=== PATIENT | male | born 1990 | race African-American/Black ===

== ENCOUNTER 2017-05-21 08:45 | Emergency (ER) | payer SELFPAY ==
[~2017-05-21] VITALS: Ht 175.3 cm; Wt 86.2 kg
[2017-05-21 08:56] VITALS: BP 125/78
[2017-05-21] MEDS ORDERED: ONDA8TAB12 PO (09:00)
[2017-05-21] MEDS ORDERED: ONDANSETRON ODT 4 MG TAB.RAPDIS PO ONE (09:00)
[2017-05-21] MEDS ORDERED: DICY10CA53 PO (09:00)
--- NOTE | 2017-05-21 09:00 | PHYS DOC ---
Past History Past Medical History: No Pertinent History Past Surgical History: No Surgical History Smoking: Non-smoker Drug Use: None Adult General Chief Complaint Chief Complaint: nausea and vomiting [facility] Patient is a pleasant otherwise healthy 26 YO -[place] male with a one- day history of nonbilious nonbloody vomiting. Last week patient was exposed to his daughters had similar symptoms at home. Yesterday had one episode of nonbilious emesis nonbloody emesis. He denies any diarrhea. He's had one episode of nonbilious nonbloody vomiting today with minimal abdominal pain. He says he has a slight abdominal pain before vomiting is gone completely. It is episodic lasting only a few moments with no radiation to the back or lower abdomen. Denies any UTI symptoms, diarrhea or other issues. He further denies any recent antibiotics, travel outside the country or fevers. Patient is still eating and drinking well without issue and he still producing adequate urine. Review of Systems Review of Systems Constitutional: Denies fever or chills [] Eyes: Denies change in visual acuity, redness, or eye pain [] HENT: Denies nasal congestion or sore throat [] Respiratory: Denies cough or shortness of breath [] Cardiovascular: No additional information not addressed in HPI [] GI: He has had some crampy abdominal pain with nausea vomiting without bloody stools or diarrhea : Denies dysuria or hematuria [] Musculoskeletal: Denies back pain or joint pain [] Integument: Denies rash or skin lesions [] Neurologic: Denies headache, focal weakness or sensory changes [] Endocrine: Denies polyuria or polydipsia [] Physical Exam Physical Exam Vital signs recorded on the chart of the nursing staff within normal limits not tachycardic not hypoxic not tachypnea not febrile Constitutional: Well developed, well nourished, no acute distress, non-toxic appearance. [] HENT: Normocephalic, atraumatic, bilateral external ears normal, oropharynx moist, no oral exudates, nose normal. [] Eyes: PERRLA, EOMI, conjunctiva normal, no discharge. [] Neck: Normal range of motion, no tenderness, supple, no stridor. [] Cardiovascular:Heart rate regular rhythm, no murmur [] Lungs & Thorax: Bilateral breath sounds clear to auscultation [] Abdomen: Patient does have hyperactive bowel sounds soft nontender abdomen no masses guarding rebound or organomegaly no pulsatile masses. Clearly no Ha' s or McBurney's point tenderness to palpation on physical exam Skin: Warm, dry, no erythema, no rash. [] Neurologic: Alert and oriented X 3, normal motor function, normal gait[] Psychologic: Affect normal, judgement normal, mood normal. [] EKG EKG [] Radiology/Procedures Radiology/Procedures [] Course & Med Decision Making Course & Med Decision Making Pertinent Labs and Imaging studies reviewed. (See chart for details) [] Dragon Disclaimer Dragon Disclaimer This chart was dictated in whole or in part using Voice Recognition software in a busy, high-work load, and often noisy Emergency Department environment. It may contain unintended and wholly unrecognized errors or omissions. Departure Departure: Impression: Primary Impression: Nausea and vomiting Disposition: HOME, SELF-CARE Condition: IMPROVED Referrals: PCPDARRIN (PCP) Patient Instructions: Nausea and Vomiting Additional Instructions: My discharge plan Follow up: In addition patient is asked to followup with their primary doctor, within a week for followup examination and to address patient's ongoing medical conditions. Because patient does not have a regular medical doctor, a local physician Resource Sheet will be provided to establish care primary care. Patient is advised that in the Emergency Department primary complaints are addressed and only in light of known signs and symptoms. Patient should return immediately to the emergency department if new signs and symptoms develop or patient's condition worsens in any way. At time of discharge patient was in stable condition and had verbalized understanding of the discharge instructions. Scripts Ondansetron (ZOFRAN ODT) 8 Mg Tab.rapdis 8 MG PO BID for 5 Days Prov: PELON ZULUAGA MD 05/21/17 Dicyclomine Hcl (BENTYL) 10 Mg Capsule 1 CAP PO TID, #15 CAP.EC Prov: PELON ZULUAGA MD 05/21/17 PELON ZULUAGA MD May 21, 2017 09:00
== END 2017-05-21 09:08 | disposition home or self-care (01) ==
LOC: ER 08:45
DX: R11.2 Nausea with vomiting, unspecified (principal); R10.9 Unspecified abdominal pain
CPT/HCPCS: 99283; Q0162

== ENCOUNTER 2017-05-23 08:33 | Emergency (ER) | payer SELFPAY ==
[~2017-05-23] VITALS: Ht 175.3 cm; Wt 86.2 kg
[~2017-05-23 08:33] MED LIST: DICY10CA53 PO; ONDA8TAB12 PO
[2017-05-23] MEDS ORDERED: IV NORMAL SALINE 1,000ML 1,000 ML IV SCH (09:04)
[2017-05-23] MEDS ORDERED: PROMETHAZINE 25 MG in IV NORMAL SALINE 50ML 50 ML IV PRN (09:15)
[2017-05-23] MEDS ORDERED: IV NORMAL SALINE 50ML 50 ML ONE (09:20)
[2017-05-23] MEDS ORDERED: PROMETHAZINE 25 MG/ML VIAL IV ONE (09:21)
[2017-05-23 09:26] LABS: BASO % 1 % (0-3); EOS # 0.1 x10^3/uL (0.0-0.7); EOS % 1 % (0-3); HEMATOCRIT 50.1 % (39.0-53.0); HEMOGLOBIN 16.7 g/dL (13.0-17.5); LYMPH # 1.6 x10^3/uL (1.0-4.8); LYMPH % 18 % (24-48); MEAN CORPUSCULAR HEMOGLOBIN 30 pg (25-35); MEAN CORPUSCULAR HGB CONC 33 g/dL (31-37); MEAN CORPUSCULAR VOLUME 90 fL (79-100); MONO # 0.7 x10^3/uL (0.0-1.1); MONO % 7 % (0-9); NEUT # 6.8 x10^3uL (1.8-7.7); NEUT % 74 % (31-73); PLATELET COUNT 202 x10^3/uL (140-400); RED BLOOD COUNT 5.59 x10^6/uL (4.30-5.70); RED CELL DISTRIBUTION WIDTH 13.5 % (11.5-14.5); WHITE BLOOD COUNT 9.2 x10^3/uL (4.0-11.0)
[2017-05-23 09:37] LABS: ALBUMIN 4.3 g/dL (3.4-5.0); ALBUMIN/GLOBULIN RATIO 1.1 (1.0-1.7); CALCIUM 8.9 mg/dL (8.5-10.1); CREATININE 1.2 mg/dL (0.7-1.3); GFR 88.6; POTASSIUM 4.3 mmol/L (3.5-5.1); TOTAL BILIRUBIN 0.4 mg/dL (0.2-1.0); TOTAL PROTEIN 8.3 g/dL (6.4-8.2)
[2017-05-23] MEDS ORDERED: ONDANSETRON PF 4 MG/2 ML VIAL. IV ONE (09:45)
[2017-05-23] MEDS ORDERED: FAMOTIDINE 20 MG/2 ML VIAL IVP ONE (09:45)
--- NOTE | 2017-05-23 09:51 | PHYS DOC ---
General Chief Complaint: NAUSEA/VOMITING/DIARRHEA Stated Complaint: N/V/D Time Seen by MD: 08:34 Source: patient, old records Exam Limitations: no limitations Problems: History of Present Illness Initial Comments Patient is a 26-year-old male who returns to the ED with abdominal discomfort nausea vomiting and diarrhea. Patient states that for the past 4 days he's had generalized abdominal discomfort and cramping, nausea and vomiting with near by mouth intolerance, and multiple loose watery stools with foul-smelling gas. He states that his daughters have had similar symptoms however appear to be improving. He says that initially his discomfort was primarily upper abdomen and it seems to move to his lower abdomen over the past several days. No recent fever or chills he has been having some muscle cramping. He's been drinking "as much Powerade as I can" but states that he vomits the Zofran and it does not help. He says anytime he eats anything solid it comes right back up and that he has been missing work. He recently moved here from [place] and does not have a primary care doctor , his employer advised him that he needed further medical documentation for the repeated days missing work. The last 2 days she's had a global mild headache when standing with dizziness and lightheadedness which resolves when he sits or lies down. His abdominal discomfort is described as cramping moderate to severe at times typically relieved with emesis or bowel movement. He states that his abdominal muscles a very sore from vomiting he denies any blood in his emesis or bowel movements. Other than recently moving from [place] he denies any other travel or known bad food exposure and states that he is normally healthy with no immunosuppression is intubated sensations are up-to-date. Again he has been exposed to his children who have similar symptoms. Patient was seen here 2 days ago with similar symptoms, discharged home with Zofran and dicyclomine. Timing/Duration: constant (4-5 days) Severity: moderate Modifying Factors: worse with eating, worse with movement, improves with rest Associated Symptoms: headaches, malaise, nausea/vomiting Allergies: Coded Allergies: No Known Drug Allergies (Unverified , 05/21/17) Past Medical History Medical History: no pertinent history Surgical History: no surgical history Social History Smoker: non-smoker Alcohol: none Drugs: marijuana Review of Systems Constitutional: see HPI Respiratory: denies cough, denies shortness of breath Cardiovascular: denies chest pain, denies palpitations Gastrointestinal: see HPI Genitourinary: denies dysuria, denies frequency, denies hematuria Musculoskeletal: see HPI, denies back pain, denies joint swelling Psychiatric/Neurological: see HPI Hematologic/Lymphatic: denies blood clots, denies easy bleeding, denies easy bruising Physical Exam General Appearance: WD/WN, no apparent distress Ear, Nose, Throat: hearing grossly normal, normal ENT inspection (dry membranes ), normal pharynx Neck: non-tender, supple Respiratory: chest non-tender, normal breath sounds, no respiratory distress Cardiovascular: normal peripheral pulses, regular rate, rhythm Gastrointestinal: soft (mildly distended audible gas bubbles with palpation negative Ha negative McBurney generalized tenderness especially in the abdominal musculature no rebound guarding or palpable masses no organomegaly no skin changes or scars) Back: no CVA tenderness, no vertebral tenderness Extremities: non-tender, normal inspection 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 Fluids/phenergan just initiated, will take an hour to infuse. Pt will have prolonged ED course due to medication delay. 1028: The patient is feeling much better nausea has resolved. I discussed prescription and [id number] medications as well as dietary recommendations moving forward. I discussed Phenergan suppositories for intractable nausea and vomiting and aggressive hydration. Signs and symptoms to monitor as well as indication for urgent return were discussed as well. Patient' s questions were answered he and his family expressed agreement and understanding with the treatment plan will have his discharge ready pending cessation of his IV hydration. Departure Time of Disposition: : Disposition: 01 HOME, SELF-CARE Diagnosis: gastroenteritis, hypovolemia Condition: STABLE Patient Instructions: Dehydration, Adult, Kxyb-xd-Eyow, Viral Gastroenteritis, Zwwx-eh-[id number] Additional Instructions: Off work through 05/25, note given. Rest, no strenuous activity. No driving or operating machinery while sedated with medications. Nnrq-hvl-[id number] Tylenol and Pepto-Bismol etc. as needed. Aggressive hydration with Gatorade and water. Clear liquids today, increase to full liquids or bland diet tomorrow as tolerated. As tolerated, may consider itdu-swp-hfaazjp probiotics or cultured yogurt ( shelton anderson). Prescription: Phenergan suppositories 25 mg use as directed Follow-up with a doctor in 5-7 days if not better. Return to ED with new or changing symptoms. TRACEE ROBB DO May 23, 2017 09:51
[2017-05-23] MEDS ORDERED: PROM25SU32 RC (10:30)
[2017-05-23 10:58] VITALS: BP 123/71
== END 2017-05-23 10:58 | disposition home or self-care (01) ==
LOC: ER 08:33
DX: K52.9 Noninfective gastroenteritis and colitis, unspecified (principal); E86.1 Hypovolemia; F12.10 Cannabis abuse, uncomplicated
CPT/HCPCS: 36415; 80053; 85025; 96365; 96375; 99285; J2405; J2550; S0028; J7030

== ENCOUNTER 2017-11-25 09:27 | Emergency (ER) | payer SELFPAY ==
[~2017-11-25 09:27] MED LIST changes: +PROM25SU32 RC
[2017-11-25] MEDS ORDERED: IV NORMAL SALINE 1,000ML 1,000 ML IV SCH (09:48)
[2017-11-25] MEDS ORDERED: 0.9 % SODIUM CHLORIDE 10 ML DISP.SYRIN. IV PRN (10:00)
[2017-11-25 10:07] LABS: BASO % 0 % (0-3); EOS # 0.2 x10^3/uL (0.0-0.7); EOS % 3 % (0-3); HEMATOCRIT 44.6 % (39.0-53.0); HEMOGLOBIN 14.9 g/dL (13.0-17.5); LYMPH # 2.2 x10^3/uL (1.0-4.8); LYMPH % 33 % (24-48); MEAN CORPUSCULAR HEMOGLOBIN 29 pg (25-35); MEAN CORPUSCULAR HGB CONC 34 g/dL (31-37); MEAN CORPUSCULAR VOLUME 88 fL (79-100); MONO # 0.7 x10^3/uL (0.0-1.1); MONO % 10 % (0-9); NEUT # 3.6 x10^3uL (1.8-7.7); NEUT % 54 % (31-73); PLATELET COUNT 213 x10^3/uL (140-400); RED BLOOD COUNT 5.08 x10^6/uL (4.30-5.70); RED CELL DISTRIBUTION WIDTH 13.5 % (11.5-14.5); WHITE BLOOD COUNT 6.7 x10^3/uL (4.0-11.0)
[2017-11-25] MEDS ORDERED: ONDANSETRON PF 4 MG/2 ML VIAL. IV ONE (10:15)
[2017-11-25 10:36] LABS: ALBUMIN 4.1 g/dL (3.4-5.0); CREATININE 1.1 mg/dL (0.7-1.3); GFR 97.2; POTASSIUM 3.7 mmol/L (3.5-5.1); TOTAL BILIRUBIN 0.9 mg/dL (0.2-1.0); TOTAL PROTEIN 8.1 g/dL (6.4-8.2)
[2017-11-25] MEDS ORDERED: IV NORMAL SALINE 1,000ML 1,000 ML IV ONE (10:45)
[2017-11-25 10:55] LABS: BACTERIA,URINE 0 /HPF (0-FEW); BILIRUBIN,URINE NEG (NEG); CLARITY,URINE CLEAR; COLOR,URINE AMBER; GLUCOSE,URINE NEG (NEG); NITRITE,URINE NEG (NEG); RBC,URINE 0 /HPF (0-2); SQUAMOUS EPITHELIAL CELL,UR FEW /LPF; UROBILINOGEN,URINE 0.2 mg/dL (0.2 mg/dL); WBC,URINE OCC /HPF (0-4)
[2017-11-25] MEDS ORDERED: ONDA4TAB10 SL (11:09)
--- NOTE | 2017-11-25 11:09 | PHYS DOC ---
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 Patient complaining of intermittent abdominal pain during episodes of vomiting as a crampy pain and denies abdominal pain at arrival to ER. Patient denies fever and chills, sick contacts. Patient complaining of decrease of urine output and muscle cramp and generalized weakness. Review of Systems Review of Systems Constitutional: Denies fever or chills , reports generalized weakness[] Eyes: Denies change in visual acuity, redness, or eye pain [] HENT: Denies nasal congestion or sore throat [] Respiratory: Denies cough or shortness of breath [] Cardiovascular: No additional information not addressed in HPI [] GI: Reports abdominal pain, nausea, vomiting, diarrhea [] : Denies dysuria or hematuria [] Musculoskeletal: Denies back pain or joint pain [] Integument: Denies rash or skin lesions [] Neurologic: Denies headache, focal weakness or sensory changes [] Endocrine: Denies polyuria or polydipsia [] All other systems were reviewed and found to be within normal limits, except as documented in this note. Current Medications Current Medications Current Medications Medications (Trade) Dose Ordered Sig/Jadyn Start Time Stop Time Status Last Admin Dose Admin Ondansetron HCl (Zofran) 4 mg 1X ONCE 11/25/17 10:15 11/25/17 10:16 DC 11/25/17 09:55 4 MG Sodium Chloride 1,000 ml @ 1,000 mls/hr 1X ONCE 11/25/17 10:45 11/25/17 11:44 11/25/17 10:35 1,000 MLS/HR Sodium Chloride (Normal Saline Flush) 10 ml QSHIFT PRN 11/25/17 10:00 Allergies Allergies Allergies Coded Allergies Type Severity Reaction Last Updated Verified No Known Drug Allergies 05/21/17 No Physical Exam Physical Exam Constitutional: Well developed, well nourished, mild distress, non-toxic appearance. [] HENT: Normocephalic, atraumatic, , oropharynx dry, no oral exudates Eyes: PERRLA, EOMI, conjunctiva normal, no discharge. [] Neck: Normal range of motion, no tenderness, supple, no stridor. [] Cardiovascular:Heart rate regular rhythm, no murmur [] Lungs & Thorax: Bilateral breath sounds clear to auscultation [] Abdomen: Bowel sounds normal, soft, no tenderness, no masses, no pulsatile masses. [] Skin: Warm, dry, no erythema, no rash. [] Back: No tenderness, no CVA tenderness. [] Extremities: No tenderness, no cyanosis, no clubbing, ROM intact, no edema. [] Neurologic: Alert and oriented X 3, normal motor function, normal sensory function, no focal deficits noted. [] Psychologic: Affect normal, judgement normal, mood normal. [] Current Patient Data Vital Signs Vital Signs Date Time Temp Pulse Resp B/P (MAP) Pulse Ox O2 Delivery O2 Flow Rate FiO2 11/25/17 09:53 98.8 70 16 97 Room Air Lab Results Laboratory Tests Test 11/25/17 09:53 11/25/17 10:30 White Blood Count 6.7 x10^3/uL (4.0-11.0) Red Blood Count 5.08 x10^6/uL (4.30-5.70) Hemoglobin 14.9 g/dL (13.0-17.5) Hematocrit 44.6 % (39.0-53.0) Mean Corpuscular Volume 88 fL (79-100) Mean Corpuscular Hemoglobin 29 pg (25-35) Mean Corpuscular Hemoglobin Concent 34 g/dL (31-37) Red Cell Distribution Width 13.5 % (11.5-14.5) Platelet Count 213 x10^3/uL (140-400) Neutrophils (%) (Auto) 54 % (31-73) Lymphocytes (%) (Auto) 33 % (24-48) Monocytes (%) (Auto) 10 % (0-9) H Eosinophils (%) (Auto) 3 % (0-3) Basophils (%) (Auto) 0 % (0-3) Neutrophils # (Auto) 3.6 x10^3uL (1.8-7.7) Lymphocytes # (Auto) 2.2 x10^3/uL (1.0-4.8) Monocytes # (Auto) 0.7 x10^3/uL (0.0-1.1) Eosinophils # (Auto) 0.2 x10^3/uL (0.0-0.7) Basophils # (Auto) 0.0 x10^3/uL (0.0-0.2) Sodium Level 137 mmol/L (136-145) Potassium Level 3.7 mmol/L (3.5-5.1) Chloride Level 102 mmol/L (98-107) Carbon Dioxide Level 25 mmol/L (21-32) Anion Gap 10 (6-14) Blood Urea Nitrogen 21 mg/dL (8-26) Creatinine 1.1 mg/dL (0.7-1.3) Estimated GFR (Cockcroft-Gault) 97.2 BUN/Creatinine Ratio 19 (6-20) Glucose Level 116 mg/dL (70-99) H Calcium Level 9.0 mg/dL (8.5-10.1) Total Bilirubin 0.9 mg/dL (0.2-1.0) Aspartate Amino Transferase (AST) 28 U/L (15-37) Alanine Aminotransferase (ALT) 34 U/L (16-63) Alkaline Phosphatase 61 U/L (46-116) Creatine Kinase 762 U/L (39-308) H Creatine Kinase MB (Mass) 2.5 ng/mL (0.0-3.6) Creatine Kinase MB Relative Index 0.3 % (0-4) Total Protein 8.1 g/dL (6.4-8.2) Albumin 4.1 g/dL (3.4-5.0) Albumin/Globulin Ratio 1.0 (1.0-1.7) Lipase 140 U/L (73-393) Urine Collection Type Unknown Urine Color Ayana Urine Clarity Clear Urine pH 8.5 Urine Specific [place] 1.020 Urine Protein 30 mg/dl (NEG-TRACE) Urine Glucose (UA) Neg mg/dL (NEG) Urine Ketones (Stick) Trace mg/dL (NEG) Urine Blood Neg (NEG) Urine Nitrite Neg (NEG) Urine Bilirubin Neg (NEG) Urine Urobilinogen Dipstick 0.2 mg/dL (0.2 mg/dL) Urine Leukocyte Esterase Neg (NEG) Urine RBC 0 /HPF (0-2) Urine WBC Occ /HPF (0-4) Urine Squamous Epithelial Cells Few /LPF Urine Bacteria 0 /HPF (0-FEW) Urine Mucus Mod /LPF EKG EKG [] Radiology/Procedures Radiology/Procedures [] Course & Med Decision Making Course & Med Decision Making Pertinent Labs reviewed. (See chart for details) Evaluation of patient in ER showed 27-year-old male patient with heat exposure yesterday and had nausea and vomiting and diarrhea after taking magnesium citrate. Patient was dehydrated in ER with stable vital signs and treated with IV fluid and Zofran and felt better. Patient tolerated oral intake. Patient had elevation of CPK and instructed to take salt besides water. Dragon Disclaimer Dragon Disclaimer This electronic medical record was generated, in whole or in part, using a voice recognition dictation system. Departure Departure: Impression: Primary Impression: Heat exhaustion due to salt depletion Additional Impression: Nausea and vomiting Disposition: HOME, SELF-CARE (At 1105) Condition: IMPROVED Referrals: PCP,NO (PCP) Patient Instructions: Heat Illness-SportsMed, Nausea and Vomiting Additional Instructions: Drink plenty of liquids , do not take plain water only Follow-up with your primary care physician in 3-5 days Return to ER if not getting better Scripts Ondansetron (ZOFRAN ODT) 4 Mg Tab.rapdis 1 TAB SL Q8HRS, #15 TAB Prov: MITCHEL MEJÍA MD 11/25/17 Problem Qualifiers MITCHEL MEJÍA MD November 25, 2017 11:09
[2017-11-25 11:29] VITALS: BP 132/58
== END 2017-11-25 11:29 | disposition home or self-care (01) ==
LOC: ER 09:27
DX: T67.4XXA Heat exhaustion due to salt depletion, initial encounter (principal); R11.2 Nausea with vomiting, unspecified; F12.10 Cannabis abuse, uncomplicated; X58.XXXA Exposure to other specified factors, initial encounter; Y93.89 Activity, other specified; Y99.8 Other external cause status; Y92.89 Other specified places as the place of occurrence of the external cause
CPT/HCPCS: 36415; 80053; 81001; 82553; 83690; 85025; 96361; 96374; 99284; J2405; J7030

== ENCOUNTER 2018-04-27 04:07 | Emergency (ER) | payer SELFPAY ==
[~2018-04-27] VITALS: Ht 180.3 cm; Wt 90.6 kg
[~2018-04-27 04:07] MED LIST changes: +ONDA4TAB10 SL
--- NOTE | 2018-04-27 04:11 | ED.ADGEN ---
Past History Past Medical History: No Pertinent History, GERD, Other Past Surgical History: No Surgical History Smoking: Non-smoker Alcohol Use: None Drug Use: Marijuana Adult General Chief Complaint Chief Complaint ".. I ve been having episodes of nausea and vomiting.. and some pain here in center.. and upper... ".. " My son was sick the other day.. but he got better. ... " [facility] HPI Patient is a 27 year old male who presents with above hx and complaints of nausea and vomiting. Patient also complaining epigastric pain and distention. No history of bad food. No history of travel. No history of contact with animals , reptiles or vitamins. Son recently sick with gastroenteritis which resolved. No history immunosuppression. No history of trauma. Does use marijuana recreationally. Does smoke. No history of tarry or dark stools. No history of diarrhea. No history of problems with urination or defecation. Review of Systems Review of Systems Constitutional: Denies fever or chills [] Eyes: Denies change in visual acuity, redness, or eye pain [] HENT: Denies nasal congestion or sore throat [] Respiratory: Denies cough or shortness of breath [] Cardiovascular: No additional information not addressed in HPI [] GI: Complaints of abdominal pain, nausea, vomiting, . Denies bloody stools or diarrhea [] : Denies dysuria or hematuria [] Musculoskeletal: Denies back pain or joint pain [] Integument: Denies rash or skin lesions [] Neurologic: Denies headache, focal weakness or sensory changes [] Endocrine: Denies polyuria or polydipsia [] All other systems were reviewed and found to be within normal limits, except as documented in this note. Family History Family History Son recently had gastroenteritis Current Medications Current Medications Current Medications Medications (Trade) Dose Ordered Sig/Jadyn Start Time Stop Time Status Last Admin Dose Admin Famotidine (Pepcid Vial) 20 mg 1X ONCE 04/27/18 05:00 04/27/18 05:01 DC 04/27/18 04:55 20 MG Ketorolac Tromethamine (Toradol 30mg Vial) 30 mg 1X ONCE 04/27/18 05:00 04/27/18 05:01 DC 04/27/18 04:54 30 MG Lactated Ringer's 1,000 ml @ 1,000 mls/hr Q1H 04/27/18 05:00 10/1/18 06:00 DC 04/27/18 04:56 1,000 MLS/HR Magnesium Hydroxide (Milk Of Magnesia) 2,400 mg 1X ONCE 04/27/18 05:00 04/27/18 05:01 DC 04/27/18 04:52 2,400 MG Ondansetron HCl (Zofran) 8 mg 1X ONCE 04/27/18 05:00 04/27/18 05:01 DC 04/27/18 04:55 8 MG Sucralfate (Carafate) 1 gm 1X ONCE 04/27/18 05:00 04/27/18 05:01 DC 04/27/18 04:53 1 GM Allergies Allergies Allergies Coded Allergies Type Severity Reaction Last Updated Verified No Known Drug Allergies 05/21/17 No Physical Exam Physical Exam Constitutional: Well developed, well nourished, mild distress, non-toxic appearance. [] HENT: Normocephalic, atraumatic, bilateral external ears normal, oropharynx moist, no oral exudates, nose normal. [] Eyes: PERRLA, EOMI, conjunctiva normal, no discharge. [] Neck: Normal range of motion, no tenderness, supple, no stridor. [] Cardiovascular:Heart rate regular rhythm, no murmur [] Lungs & Thorax: Bilateral breath sounds equal at apex with scattered wheezes on auscultation [] Abdomen: Bowel sounds are hyper active, soft, a gastric tenderness, no masses, no pulsatile masses. [] Mild rebound to epigastric area. Patient declines rectal exam. No testicular tenderness. Skin: Warm, dry, no erythema, no rash. [] Back: No tenderness, no CVA tenderness. [] Extremities: No tenderness, no cyanosis, no clubbing, ROM intact, no edema. [] No psoas or obturator sign. Neurologic: Alert and oriented X 3, normal motor function, normal sensory function, no focal deficits noted. [] Psychologic: Affect normal, judgement normal, mood normal. [] Current Patient Data Vital Signs Vital Signs Date Time Temp Pulse Resp B/P (MAP) Pulse Ox O2 Delivery O2 Flow Rate FiO2 04/27/18 06:13 88 16 119/77 (91) 100 Room Air 04/27/18 04:10 97.3 Lab Results Laboratory Tests Test 04/27/18 04:58 04/27/18 05:41 White Blood Count 11.4 x10^3/uL (4.0-11.0) H Red Blood Count 5.01 x10^6/uL (4.30-5.70) Hemoglobin 14.6 g/dL (13.0-17.5) Hematocrit 44.2 % (39.0-53.0) Mean Corpuscular Volume 88 fL (79-100) Mean Corpuscular Hemoglobin 29 pg (25-35) Mean Corpuscular Hemoglobin Concent 33 g/dL (31-37) Red Cell Distribution Width 13.6 % (11.5-14.5) Platelet Count 214 x10^3/uL (140-400) Neutrophils (%) (Auto) 78 % (31-73) H Lymphocytes (%) (Auto) 13 % (24-48) L Monocytes (%) (Auto) 6 % (0-9) Eosinophils (%) (Auto) 3 % (0-3) Basophils (%) (Auto) 0 % (0-3) Neutrophils # (Auto) 8.8 x10^3uL (1.8-7.7) H Lymphocytes # (Auto) 1.5 x10^3/uL (1.0-4.8) Monocytes # (Auto) 0.7 x10^3/uL (0.0-1.1) Eosinophils # (Auto) 0.3 x10^3/uL (0.0-0.7) Basophils # (Auto) 0.0 x10^3/uL (0.0-0.2) Prothrombin Time 11.1 SEC (9.4-11.4) Prothrombin Time INR 1.1 (0.9-1.1) PTT 28 SEC (23-33) Sodium Level 140 mmol/L (136-145) Potassium Level 3.7 mmol/L (3.5-5.1) Chloride Level 103 mmol/L (98-107) Carbon Dioxide Level 29 mmol/L (21-32) Anion Gap 8 (6-14) Blood Urea Nitrogen 15 mg/dL (8-26) Creatinine 1.1 mg/dL (0.7-1.3) Estimated GFR (Cockcroft-Gault) 97.2 Glucose Level 97 mg/dL (70-99) Calcium Level 9.3 mg/dL (8.5-10.1) Total Bilirubin 0.2 mg/dL (0.2-1.0) Direct Bilirubin 0.1 mg/dL (0.0-0.2) Aspartate Amino Transferase (AST) 18 U/L (15-37) Alanine Aminotransferase (ALT) 28 U/L (16-63) Alkaline Phosphatase 57 U/L (46-116) Total Protein 7.8 g/dL (6.4-8.2) Albumin 4.1 g/dL (3.4-5.0) Amylase Level 131 U/L (25-115) H Lipase 214 U/L (73-393) Urine Collection Type Unknown Urine Color Yellow Urine Clarity Clear Urine pH 5.5 Urine Specific [place] >=1.030 Urine Protein Neg (NEG-TRACE) Urine Glucose (UA) Neg mg/dL (NEG) Urine Ketones (Stick) 15 mg/dL (NEG) Urine Blood Neg (NEG) Urine Nitrite Neg (NEG) Urine Bilirubin Neg (NEG) Urine Urobilinogen Dipstick 0.2 mg/dL (0.2 mg/dL) Urine Leukocyte Esterase Neg (NEG) Urine RBC Occ /HPF (0-2) Urine WBC 0 /HPF (0-4) Urine Squamous Epithelial Cells Occ /LPF Urine Bacteria 0 /HPF (0-FEW) Urine Mucus Mod /LPF Urine Opiates Screen Neg (NEG) Urine Methadone Screen Neg (NEG) Urine Barbiturates Neg (NEG) Urine Phencyclidine Screen Neg (NEG) Urine Amphetamine/Methamphetamine Neg (NEG) Urine Benzodiazepines Screen Neg (NEG) Urine Cocaine Screen Neg (NEG) Urine Cannabinoids Screen Pos (NEG) Urine Ethyl Alcohol Neg (NEG) EKG EKG [] Radiology/Procedures Radiology/Procedures My interpretation of acute abdomen film shows no acute cardiopulmonary findings. No free air under the diaphragm. Nonspecific bowel gas pattern.[] Course & Med Decision Making Course & Med Decision Making Pertinent Labs and Imaging studies reviewed. (See chart for details). A on a clear fluid diet only for the next 2 days. Allow bowel rest. Takes Zantac and 50 mg twice a day. Zofran 8 mg up 4 times a day for nausea and vomiting. Take Tylenol and ibuprofen for discomfort. Follow-up primary care. Return if any concerns. [] Final Impression Final Impression 1. Nausea and vomiting. [] 2. Gastritis 3. Viral Syndrome 4. Leukocytosis Dragon Disclaimer Dragon Disclaimer This electronic medical record was generated, in whole or in part, using a voice recognition dictation system. STEVIE VINSON MD Apr 27, 2018 04:11
[2018-04-27] MEDS ORDERED: RANI150T21 PO (04:43)
[2018-04-27] MEDS ORDERED: ONDA8TAB12 PO (04:43)
[2018-04-27] MEDS ORDERED: ONDANSETRON PF 4 MG/2 ML VIAL. IV ONE (05:00)
[2018-04-27] MEDS ORDERED: FAMOTIDINE 20 MG/2 ML VIAL IVP ONE (05:00)
[2018-04-27] MEDS ORDERED: IV RINGERS SOLUTION,LACTATED 1,000 ML IV SCH (05:00)
[2018-04-27] MEDS ORDERED: MAGNESIUM HYDROXIDE 2,400 MG/30 ML ORAL.SUSP. PO ONE (05:00)
[2018-04-27] MEDS ORDERED: SUCRALFATE 1 GM TABLET. PO ONE (05:00)
[2018-04-27] MEDS ORDERED: KETOROLAC 30 MG/ML VIAL. IV ONE (05:00)
[2018-04-27 05:19] LABS: BASO % 0 % (0-3); EOS # 0.3 x10^3/uL (0.0-0.7); EOS % 3 % (0-3); HEMATOCRIT 44.2 % (39.0-53.0); HEMOGLOBIN 14.6 g/dL (13.0-17.5); LYMPH # 1.5 x10^3/uL (1.0-4.8); LYMPH % 13 % (24-48); MEAN CORPUSCULAR HEMOGLOBIN 29 pg (25-35); MEAN CORPUSCULAR HGB CONC 33 g/dL (31-37); MEAN CORPUSCULAR VOLUME 88 fL (79-100); MONO # 0.7 x10^3/uL (0.0-1.1); MONO % 6 % (0-9); NEUT # 8.8 x10^3uL (1.8-7.7); NEUT % 78 % (31-73); PLATELET COUNT 214 x10^3/uL (140-400); RED BLOOD COUNT 5.01 x10^6/uL (4.30-5.70); RED CELL DISTRIBUTION WIDTH 13.6 % (11.5-14.5); WHITE BLOOD COUNT 11.4 x10^3/uL (4.0-11.0)
[2018-04-27 05:31] LABS: ALBUMIN 4.1 g/dL (3.4-5.0); CALCIUM 9.3 mg/dL (8.5-10.1); CREATININE 1.1 mg/dL (0.7-1.3); DIRECT BILIRUBIN 0.1 mg/dL (0.0-0.2); GFR 97.2; POTASSIUM 3.7 mmol/L (3.5-5.1); TOTAL BILIRUBIN 0.2 mg/dL (0.2-1.0); TOTAL PROTEIN 7.8 g/dL (6.4-8.2)
[2018-04-27 06:08] LABS: BARBITURATES NEG (NEG); BENZODIAZEPINES NEG (NEG); CANNABINOIDS POS (NEG); COCAINE NEG (NEG); METHADONE NEG (NEG); OPIATES NEG (NEG); PHENCYCLIDINE NEG (NEG)
[2018-04-27 06:09] LABS: AMPHETAMINE/METHAMPHETAMINE NEG (NEG); BILIRUBIN,URINE NEG (NEG); CLARITY,URINE CLEAR; COLOR,URINE YELLOW; GLUCOSE,URINE NEG (NEG)
[2018-04-27 06:10] LABS: BACTERIA,URINE 0 /HPF (0-FEW); NITRITE,URINE NEG (NEG); RBC,URINE OCC /HPF (0-2); SQUAMOUS EPITHELIAL CELL,UR OCC /LPF; UROBILINOGEN,URINE 0.2 mg/dL (0.2 mg/dL); WBC,URINE 0 /HPF (0-4)
[2018-04-27 06:13] VITALS: BP 119/77
--- NOTE | 2018-04-27 07:41 | RAD ---
Acute abdomen series with chest, 3 views, 04/27/2018: HISTORY: Abdominal pain Small air-fluid levels are seen in nondilated bowel, predominantly colon. The findings suggest a mild ileus. No free air seen in the abdomen. There is no evidence of organomegaly. Lower pelvic calcifications are probably phleboliths. The heart size is normal. The lungs are clear. IMPRESSION: Scattered air-fluid levels in the GI tract suggest an ileus. Electronically signed by: Kalin Vasquez MD (04/27/2018 7:37 AM) [facility]
== END 2018-04-27 06:16 | disposition home or self-care (01) ==
LOC: ER 04:07
DX: K29.70 Gastritis, unspecified, without bleeding (principal); B34.9 Viral infection, unspecified; D72.829 Elevated white blood cell count, unspecified; K21.9 Gastro-esophageal reflux disease without esophagitis
CPT/HCPCS: 36415; 74022; 80048; 80076; 80307; 81001; 82150; 83690; 85025; 85610; 85730; 96361; 96374; 96375; 99285; J1885; J2405; J7120; S0028; G0479

== ENCOUNTER 2019-02-22 05:27 | Emergency (ER) | payer OTHER ==
[~2019-02-22] VITALS: Ht 180.3 cm; Wt 90.6 kg
[~2019-02-22 05:27] MED LIST changes: +RANI-376 PO
--- NOTE | 2019-02-22 05:54 | ED.ADGEN ---
Past History Past Medical History: No Pertinent History, GERD, Other Past Surgical History: No Surgical History Smoking: Non-smoker Alcohol Use: None Drug Use: Marijuana Adult General Chief Complaint Chief Complaint ".. I had a coughing spell that woke me up from sleep.. It scared me and I through I needed to get checked out..." HPI HPI Patient is a 28 year old male who presents with hx of coughing. 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 No recent travel. No specific ill contacts. No history of immunosuppression suppression. Patient does smoke marijuana. No history of cardiac disorder. Patient does have a history of GERD. Pt. currently without symptoms. Review of Systems Review of Systems Constitutional: Denies fever or chills [] Eyes: Denies change in visual acuity, redness, or eye pain [] HENT: Denies nasal congestion or sore throat [] Respiratory: Complaints of cough. Denies shortness of breath [] Cardiovascular: No additional information not addressed in HPI [] GI: Denies abdominal pain, nausea, vomiting, bloody stools or diarrhea [] : Denies dysuria or hematuria [] Musculoskeletal: Denies back pain or joint pain [] Integument: Denies rash or skin lesions [] Neurologic: Denies headache, focal weakness or sensory changes [] Endocrine: Denies polyuria or polydipsia [] All other systems were reviewed and found to be within normal limits, except as documented in this note. Family History Family History Noncontributory Current Medications Current Medications See nursing for home meds Allergies Allergies Allergies Coded Allergies Type Severity Reaction Last Updated Verified No Known Drug Allergies 05/21/17 No Physical Exam Physical Exam Constitutional: Well developed, well nourished, no acute distress, non-toxic appearance. [] HENT: Normocephalic, atraumatic, bilateral external ears normal, oropharynx mois t, no oral exudates, nose normal. [] Eyes: PERRLA, EOMI, conjunctiva normal, no discharge. [] Neck: Normal range of motion, no tenderness, supple, no stridor. [] Cardiovascular:Heart rate regular rhythm, no murmur [] Lungs & Thorax: Bilateral breath sounds equal apexes on auscultation []a few scattered wheezes Abdomen: Bowel sounds normal, soft, no tenderness, no masses, no pulsatile masses. [] Skin: Warm, dry, no erythema, no rash. [] Back: No tenderness, no CVA tenderness. [] Extremities: No tenderness, no cyanosis, no clubbing, ROM intact, no edema. [] Neurologic: Alert and oriented X 3, normal motor function, normal sensory function, no focal deficits noted. [] Psychologic: Affect normal, judgement normal, mood normal. [] Current Patient Data Vital Signs Vital Signs Date Time Temp Pulse Resp B/P (MAP) Pulse Ox O2 Delivery O2 Flow Rate FiO2 02/22/19 06:10 74 18 137/69 (91) 98 Room Air 02/22/19 05:27 97.9 Lab Results Pt. declines needle or IV sticks. ( No labs) EKG EKG [] Radiology/Procedures Radiology/Procedures Pt. declines X-ray[] Course & Med Decision Making Course & Med Decision Making Pertinent Labs and Imaging studies reviewed. (See chart for details) Patient may take Benadryl 25 mg up 4 times a day for allergies. Patient return of any concerns. Patient encouraged to wear dust mask at work. Patient encouraged to stop smoking marijuana. [] Final Impression Final Impression 1. Patient to wear a mask at work to lower the exposure to concrete dust 2. Patient follow-up primary care.[] Dragon Disclaimer Dragon Disclaimer This electronic medical record was generated, in whole or in part, using a voice recognition dictation system. Discharge Summary Visit Information Final Diagnosis Problems Medical Problems: (1) Cough Status: Acute (2) Reactive airway disease that is not asthma Status: Acute Brief Hospital Course Allergies Allergies Coded Allergies Type Severity Reaction Last Updated Verified No Known Drug Allergies 05/21/17 No Vital Signs Vital Signs Date Time Temp Pulse Resp B/P (MAP) Pulse Ox O2 Delivery O2 Flow Rate FiO2 02/22/19 06:10 74 18 137/69 (91) 98 Room Air 02/22/19 05:27 97.9 Brief Hospital Course Mr. Colón is a 28 old male who presented with hx of awaken with coughing spasm. Discharge Information Condition at Discharge: Improved, Stable Disposition/Orders: D/C to Home Dischare Medications Active Scripts Active Zantac (Ranitidine Hcl) 150 Mg Tablet 150 Mg PO BID 30 Days Zofran Odt (Ondansetron) 8 Mg Tab.rapdis 8 Mg PO QIDPRN PRN Zofran Odt (Ondansetron) 4 Mg Tab.rapdis 1 Tab SL Q8HRS Phenergan (Promethazine HCl) 25 Mg Supp.rect 25 Mg RC Q6HRS Zofran Odt (Ondansetron) 8 Mg Tab.rapdis 8 Mg PO BID 5 Days Bentyl (Dicyclomine Hcl) 10 Mg Capsule 1 Cap PO TID James Disclaimer This chart was dictated in whole or in part using Voice Recognition software in a busy, high-work load, and often noisy Emergency Department environment. It may contain unintended and wholly unrecognized errors or omissions. STEVIE VINSON MD Feb 22, 2019 05:54
[2019-02-22 06:10] VITALS: BP 137/69
== END 2019-02-22 06:10 | disposition home or self-care (01) ==
LOC: ER 05:27
DX: R05 Cough (principal); K21.9 Gastro-esophageal reflux disease without esophagitis
CPT/HCPCS: 99281